=== PATIENT | female | born 1970 | race Caucasian/White ===

== ENCOUNTER 2019-07-13 15:21 | Emergency (ER) | payer SELFPAY ==
[~2019-07-13] VITALS: Ht 160 cm; Wt 74.8 kg
--- NOTE | 2019-07-13 15:37 | NUR ---
patient seen by . Sterile gauze applied.
[2019-07-13] MEDS ORDERED: HYDROCODONE/APAP 5-325MG TABLET PO ONE (15:45)
[2019-07-13] MEDS ORDERED: HYDROCODONE/APAP 5-325MG TABLET ONE (15:45)
--- NOTE | 2019-07-13 15:48 | NUR ---
Sterile dressing applied. DC, Rx and follow up instructions given and explained to patient who states she understands all instructions.
== END 2019-07-13 15:59 | disposition home or self-care (01) ==
LOC: ER 15:21
DX: L02.31 Cutaneous abscess of buttock (principal); S30.860A Insect bite (nonvenomous) of lower back and pelvis, initial encounter; L03.317 Cellulitis of buttock; W57.XXXA Bitten or stung by nonvenomous insect and other nonvenomous arthropods, initial encounter; Y92.89 Other specified places as the place of occurrence of the external cause
CPT/HCPCS: A4663